=== PATIENT | male | born 1985 | race Caucasian/White ===

== ENCOUNTER 2017-09-07 19:38 | Emergency (ER) | payer BC ==
--- NOTE | 2017-09-07 20:07 | UC ---
Skin Complaint HPI - HPI Summary HPI Summary: Patient is here with concern of left index finger infection. 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 He has had the finger nail removed twice and has never grown back normal. He trimmed the nail very short and since then has developed redness and some swelling. Denies any fevers chills. No discharge. He is from [place] and driving through the area to get to the [facility] to [place] with his friends and decided to stop here. - History of Current Complaint Time Seen by Provider: 09/07/17 19:52 Stated Complaint: LEFT FINGER COMPLAINT Pain Intensity: 1 - Allergy/Home Medications Allergies/Adverse Reactions: Allergies Allergy/AdvReac Type Severity Reaction Status Date / Time Sulfa (Sulfonamide Allergy Hives Verified 09/07/17 19:52 Antibiotics) Review of Systems Constitutional: Negative Skin: Other - Redness Eyes: Negative ENT: Negative Respiratory: Negative Cardiovascular: Negative Gastrointestinal: Negative Genitourinary: Negative Motor: Negative Neurovascular: Negative Musculoskeletal: Negative Neurological: Negative Psychological: Negative Is Patient Immunocompromised?: No All Other Systems Reviewed And Are Negative: Yes PMH/Surg Hx/FS Hx/Imm Hx Previously Healthy: Yes - Surgical History Surgical History: Yes Surgery Procedure, Year, and Place: umbilical hernia sx - Social History Alcohol Use: Occasionally Substance Use Type: None Smoking Status (MU): Former Smoker Type: eCigarettes When Did the Patient Quit Smoking/Using Tobacco: approx 2 yrs ago Physical Exam Triage Information Reviewed: Yes Appearance: Well-Appearing, No Pain Distress, Well-Nourished Vital Signs: Initial Vital Signs Temp 98.9 F 09/07/17 19:52 Pulse 85 09/07/17 19:52 Resp 16 09/07/17 19:52 BP 148/57 09/07/17 19:52 Pulse Ox 100 09/07/17 19:52 Respiratory Exam: Normal Respiratory: Positive: Lungs clear Cardiovascular Exam: Normal Cardiovascular: Positive: RRR Musculoskeletal Exam: Normal Neurological Exam: Normal Psychological Exam: Normal Skin: Positive: Other - left index finger with erythema at proximal redness. no fluctuance. no d.c, nail cut very short. Course/Dx - Differential Diagnoses - Skin Complaint Differential Diagnoses: Cellulitis - Diagnoses Provider Diagnoses: left index finger cellulitis Discharge - Sign-Out/Discharge Documenting (check all that apply): Patient Departure - Discharge Plan Condition: Stable Disposition: HOME Prescriptions: Doxycycline Monohydrate 100 mg PO BID #20 cap Patient Education Materials: Cellulitis (ED) Referrals: No Primary Care Phys,NOPCP [Primary Care Provider] - Additional Instructions: Make sure to take a probiotic daily while on antibiotics to help prevent a potential complication of antibiotic use called c diff. Some well known brands that can be found OTC are florastor, align and [employer]. Make sure to complete the entire prescription unless advised otherwise by your health care provider. -You should be seen at an urgent care while on your trip if you see white thick fluid/puss collecting under the skin or you develop wroening redness, fevers, chills, night sweats -Follow up with your PCP when you are back in [place]. - Billing Disposition and Condition Condition: STABLE Disposition: Home
== END 2017-09-07 20:14 | disposition home or self-care (01) ==
LOC: UCCORT 19:38
DX: L03.012 Cellulitis of left finger (principal); Z88.1 Allergy status to other antibiotic agents; Z79.891 Long term (current) use of opiate analgesic
CPT/HCPCS: 99202; G0463